=== PATIENT | male | born 1965 | race American Indian/Alaskan Native ===

== ENCOUNTER 2018-07-31 18:24 | Emergency (ER) | payer SELFPAY ==
[2018-07-31] MEDS ORDERED: NACL 0.9% 1000 ML 1,000 ML IV ONE (18:57)
[2018-07-31 19:50] LABS: Basophils % (Auto) 0.3 % (0.0-1.8); Eosinophils # (Auto) 0.1 K/mm3 (0.0-0.4); Hematocrit 34.3 % (35.5-45.6); Hemoglobin 11.8 gm/dl (11.8-15.2); Lymphocytes % (Auto) 21.3 % (13.4-35.0); Mean Corpuscular HGB Conc 34 % (32-34); Mean Corpuscular Hemoglobin 31 pg (28-32); Mean Corpuscular Volume 91 fl (84-94); Monocytes # (Auto) 1.6 K/mm3 (0.0-0.8); Monocytes % (Auto) 11.1 % (0.0-7.3); Platelet Count 393 K/mm3 (140-440); Red Blood Count 3.77 M/mm3 (3.65-5.03); Red Cell Distribution Width 13.6 % (13.2-15.2)
[2018-07-31 20:01] LABS: INR 1.01 (0.87-1.13)
[2018-07-31 20:02] LABS: Partial Thromboplastin Time 33.2 Sec. (24.2-36.6)
[2018-07-31 20:08] LABS: Alanine Aminotransferase 8 units/L (7-56); Albumin 3.8 g/dL (3.9-5); BUN/Creatinine Ratio 14; Blood Urea Nitrogen 14 mg/dL (9-20); Calcium 9.3 mg/dL (8.4-10.2); Hemolysis Index 2; Lipase 26 units/L (13-60)
[2018-07-31] MEDS ORDERED: ZOFRAN IV ONE (23:45)
[2018-07-31] MEDS ORDERED: NACL 0.9% 1000 ML 2,000 ML IV ONE (23:50)
[2018-07-31] MEDS ORDERED: DILAUDID IV ONE (23:50)
[2018-07-31] MEDS ORDERED: PROTONIX IV ONE (23:52)
--- NOTE | 2018-07-31 23:52 | Emergency Department Report ---
HPI - General Chief Complaint: GI Bleed Time Seen by Provider: 07/31/18 23:46 - HPI HPI: The patient is a 52-year-old male who presents for evaluation of pelvic pain and rectal bleeding. The patient reports on and off pelvic and rectal pain for the past one to weeks, associated with rectal bleeding, worsened the past couple of days. He shares that his pain was severe but has improved the past couple of days since taking an antibiotic given to him to treat a UTI. Patient denies fever, vomiting, diarrhea, dysuria, hx of gi bleed. ED Past Medical Hx - Past Medical History Previous Medical History?: Yes Hx Hypertension: Yes Hx Diabetes: Yes - Surgical History Past Surgical History?: Yes Additional Surgical History: gastric bypass - Social History Smoking Status: Never Smoker Substance Use Type: None ED Review of Systems ROS: Stated complaint: UTI/RECTUM BLEEDING/PAIN Other details as noted in HPI Constitutional: denies: fever ENT: denies: throat or neck pain Respiratory: denies: cough, shortness of breath Cardiovascular: denies: chest pain Endocrine: denies unexplained weight loss or gain Gastrointestinal: reports glood in the stool denies: abdominal pain, nausea Genitourinary: reports rectal bleeding denies: dysuria Musculoskeletal: denies: leg swelling Skin: denies: rash Neurological: denies: headache Hematological/Lymphatic: denies: easy bleeding or easy bruising Psych: denies sadness or hopelessness Physical Exam - Physical Exam Vital Signs: Vital Signs 07/31/18 18:53 Temperature 98.8 F Pulse Rate 87 Respiratory 16 Rate Blood Pressure 132/87 O2 Sat by Pulse 95 Oximetry Physical Exam: General: well-nourished, well-developed, no acute distress Head: Normocephalic, atraumatic Eyes: normal sclera ENT: Mucous membranes are pink and moist Neck: trachea midline, neck supple, No neck stiffness, no cervical adenopathy Respiratory: Breath sounds equal bilaterally, no wheezing, rales, or rhonchi Cardio: S1 and S2 present, no murmurs, rubs, gallops, capillary refill is brisk Abdomen: Normoactive bowel sounds, soft abdomen, no rigidity, no guarding or rebound tenderness Musc: No pitting edema Skin: No rash Neuro: no facial drooping, normal speech Psych: Normal affect ED Course Vital Signs 07/31/18 18:53 Temperature 98.8 F Pulse Rate 87 Respiratory 16 Rate Blood Pressure 132/87 O2 Sat by Pulse 95 Oximetry ED Medical Decision Making - Lab Data Result diagrams: 07/31/18 19:25 07/31/18 19:25 - Medical Decision Making The patient was seen and examined by myself. The patient is placed on a engine monitor and continuous pulse ox. On initial evaluation, the patient was found to be in no distress. Evaluation orders are placed. IV access is established and the patient is given IV omeprazole for treatment of GI bleeding. The patient given a total of [place] for his pain. Lab results revealed leukocytosis, WBC 14, and otherwise labs were unrevealing, including normal platelet levels, coags, and hemoglobin and hematocrit. CT scan abdomen and pelvis is ordered to rule out diverticulitis, intestinal abscess, aortoenteric fistula, or other emergent intra-abdominal disease process. CT scan of the abd/pelvis is pending. The patient is signed off to the car shifter ED physician Dr. Wagoner, whom agrees to accept care of the patient, to follow up on pending imaging, and to arrange ultimate appropriate disposition for the patient. Critical care attestation.: If time is entered above; I have spent that time in minutes in the direct care of this critically ill patient, excluding procedure time. ED Disposition Clinical Impression: Rectal abscess Disposition: DC-01 TO HOME OR SELFCARE Is pt being admited?: No Does the pt Need Aspirin: No Condition: Good Instructions: Anorectal Abscess and Anal Fistula (ED) Additional Instructions: Apply warm compresses as often as as needed to the affected area. Purchase a donut pillow. Use a sitz bath as often as as needed. Continue Bactrim antibiotics. Follow-up with the primary care doctor or general surgeon for presumed perirectal abscess within the next 5-7 days. Combination therapy of antibiotics, warm compresses, appropriate local hygiene and cleanliness, as well as sitz baths, may help with resolution of small abscess. However, there is a small chance that the lesion could grow larger, and require intervention, either with incision and drainage or surgery. Therefore, it is very important to follow-up as recommended. Return to the ER right away with new pain, worsened pain, migration of pain, projectile vomiting, change in mental status, confusion, inability to tolerate liquid feeds. Local general surgeons include Drs. Kessler and Shen Referrals: SHERITA KESSLER MD [Staff Physician] - 3-5 Days CAS CALERO DO [Staff Physician] - 3-5 Days Forms: Accompanied Note Time of Disposition: 23:51
[2018-08-01] MEDS ORDERED: NORCO 5/325 PO ONE (00:50)
[2018-08-01 01:44] VITALS: BP 125/76
[2018-08-01] MEDS ORDERED: ZOFRAN ONE (01:55)
[2018-08-01] MEDS ORDERED: PROTONIX IV ONE (01:55)
[2018-08-01] MEDS ORDERED: DILAUDID ONE (01:56)
[2018-08-01] MEDS ORDERED: NACL 0.9% 1000 ML 1,000 ML ONE (01:57)
[2018-08-01] MEDS ORDERED: SUBLIMAZE ONE (02:21)
[2018-08-01] MEDS: SUBLIMAZE IV ONE ×2 (02:29→02:42)
--- NOTE | 2018-08-01 04:33 | Event Note ---
Date: 08/01/18 This is a 52-year-old gentleman who is not known to this provider previously, with a history of gastric bypass, who presents to the ER with a complaint of mostly painless bloody defecation. Patient reports that this started within the past few days. He reports that he went to an outpatient urgent care center , and at that time, had brown stool mixed with red blood, with slight discomfort with defecation. However he is not having abdominal pain. He also denied irritative and obstructive urinary symptoms. At the aforementioned urgent care center, patient is presumptively diagnosed with a UTI, secondary to presumed abnormal findings on the urinalysis, and given a cream for a "yeast." He reports that a day later, he developed pain with defecation, and developed bleeding with defecation. Still has no abdominal pain. Presented to the ER today for evaluation of bloody defecation, now with pain resolved. On his exam, there is brown stool mixed with red blood, and there appears to be an early perirectal abscess which already has popped and is draining, at 7:00. During the rectal examination, I am chaperoned by nurse Bozena Coleman Laboratory studies and a CT scan were ordered by the initial ER physician, Dr. Gao, and they did not demonstrate any significant abnormalities. The patient has been in the ER for many hours without clinical decompensation and stable vital signs. Patient may continue Bactrim for skin and soft tissue coverage, he is instructed to initiate sitz baths, warm compresses, increased water consumption, increase fiber consumption. Patient counseled that the lesion may resolve on its own, or may grow larger, to the point where it would require incision and drainage. He and his partner indicate they are reliable to follow-up with either general surgery or primary care. Return precautions are reviewed. Vital Signs 07/31/18 08/01/18 08/01/18 18:53 01:43 02:38 Temperature 98.8 F Pulse Rate 87 70 Respiratory 16 18 20 Rate Blood Pressure 132/87 Blood Pressure 125/76 [Left] O2 Sat by Pulse 95 96 95 Oximetry Lab Results 07/31/18 07/31/18 07/31/18 Range/Units 19:25 19:25 19:25 WBC 14.1 H (4.5-11.0) K/mm3 RBC 3.77 (3.65-5.03) M/mm3 Hgb 11.8 (11.8-15.2) gm/dl Hct 34.3 L (35.5-45.6) % MCV 91 (84-94) fl MCH 31 (28-32) pg MCHC 34 (32-34) % RDW 13.6 (13.2-15.2) % Plt Count 393 (140-440) K/mm3 Lymph % (Auto) 21.3 (13.4-35.0) % [place] % (Auto) 11.1 H (0.0-7.3) % Eos % (Auto) 1.0 (0.0-4.3) % Baso % (Auto) 0.3 (0.0-1.8) % Lymph # 3.0 (1.2-5.4) K/mm3 [place] # 1.6 H (0.0-0.8) K/mm3 Eos # 0.1 (0.0-0.4) K/mm3 Baso # 0.0 (0.0-0.1) K/mm3 Seg Neutrophils % 66.3 (40.0-70.0) % Seg Neutrophils # 9.4 H (1.8-7.7) K/mm3 PT 13.8 (12.2-14.9) Sec. INR 1.01 (0.87-1.13) APTT 33.2 (24.2-36.6) Sec. Sodium 135 L (137-145) mmol/L Potassium 4.3 (3.6-5.0) mmol/L Chloride 98.1 (98-107) mmol/L Carbon Dioxide 27 (22-30) mmol/L Anion Gap 14 mmol/L BUN 14 (9-20) mg/dL Creatinine 1.0 (0.8-1.5) mg/dL Estimated GFR > 60 ml/min BUN/Creatinine Ratio 14 % Glucose 108 H (75-100) mg/dL Calcium 9.3 (8.4-10.2) mg/dL Total Bilirubin 0.40 (0.1-1.2) mg/dL AST 13 (5-40) units/L ALT 8 (7-56) units/L Alkaline Phosphatase 71 (35-129) units/L Total Protein 8.1 (6.3-8.2) g/dL Albumin 3.8 L (3.9-5) g/dL Albumin/Globulin Ratio 0.9 % Lipase 26 (13-60) units/L Blood Type Antibody Screen 07/31/18 Range/Units 19:30 WBC (4.5-11.0) K/mm3 RBC (3.65-5.03) M/mm3 Hgb (11.8-15.2) gm/dl Hct (35.5-45.6) % MCV (84-94) fl MCH (28-32) pg MCHC (32-34) % RDW (13.2-15.2) % Plt Count (140-440) K/mm3 Lymph % (Auto) (13.4-35.0) % [place] % (Auto) (0.0-7.3) % Eos % (Auto) (0.0-4.3) % Baso % (Auto) (0.0-1.8) % Lymph # (1.2-5.4) K/mm3 [place] # (0.0-0.8) K/mm3 Eos # (0.0-0.4) K/mm3 Baso # (0.0-0.1) K/mm3 Seg Neutrophils % (40.0-70.0) % Seg Neutrophils # (1.8-7.7) K/mm3 PT (12.2-14.9) Sec. INR (0.87-1.13) APTT (24.2-36.6) Sec. Sodium (137-145) mmol/L Potassium (3.6-5.0) mmol/L Chloride (98-107) mmol/L Carbon Dioxide (22-30) mmol/L Anion Gap mmol/L BUN (9-20) mg/dL Creatinine (0.8-1.5) mg/dL Estimated GFR ml/min BUN/Creatinine Ratio % Glucose (75-100) mg/dL Calcium (8.4-10.2) mg/dL Total Bilirubin (0.1-1.2) mg/dL AST (5-40) units/L ALT (7-56) units/L Alkaline Phosphatase (35-129) units/L Total Protein (6.3-8.2) g/dL Albumin (3.9-5) g/dL Albumin/Globulin Ratio % Lipase (13-60) units/L Blood Type O POSITIVE Antibody Screen Negative
--- NOTE | 2018-08-01 05:11 | Cat Scan Report ---
FINAL REPORT PROCEDURE: CT ABDOMEN PELVIS W CON TECHNIQUE: Computerized axial tomography of the abdomen and pelvis was performed after the IV injection of iodinated nonionic contrast. HISTORY: pelvic pain, rectal bleeding COMPARISON: No prior studies are available for comparison. FINDINGS: Visualized lower thorax: No significant abnormality. Liver: Normal size and attenuation. Spleen: Normal size and attenuation. Gallbladder and biliary system: There is cholelithiasis. There is no cholecystitis or biliary ductal dilatation.. Pancreas: Normal. Adrenals: Normal. Kidneys: There is a 6 centimeters cyst in the left kidney. There are tiny stones in the lower pole the left kidney. There are no ureteral stones. There is no hydronephrosis.. GI tract: There is no bowel obstruction, colitis or enteritis. The appendix is normal.. There has been gastric bypass surgery. Lymph nodes and mesentery: Normal. Vasculature: Normal. Bladder: Normal. Reproductive organs: Normal. Peritoneum: There is no ascites or free air, abscess or adenopathy.. Musculoskeletal structures: No significant abnormality. Other: None. IMPRESSION: There is cholelithiasis. There is no cholecystitis or biliary ductal dilatation.. There is a 6 centimeters cyst in the left kidney. There are tiny stones in the lower pole the left kidney. There are no ureteral stones. There is no hydronephrosis.. There is no bowel obstruction, colitis or enteritis. The appendix is normal.. There has been gastric bypass surgery. There is no ascites or free air, abscess or adenopathy..
== END 2018-08-01 05:48 | disposition home or self-care (01) ==
LOC: ED 18:24
DX: K61.1 Rectal abscess (principal); I10 Essential (primary) hypertension; E11.9 Type 2 diabetes mellitus without complications
CPT/HCPCS: 36415; 74177; 80053; 83690; 85025; 85610; 85730; 86850; 86900; 86901; 93005; 93010; 96374; 96375; 99284; C9113; J2405; J7030; Q9967; J1170; J3010